=== PATIENT | female | born 1995 | race Caucasian/White ===

== ENCOUNTER 2017-03-22 09:28 | Emergency (ER) | payer OTHER ==
[2017-03-22 09:37] VITALS: BP 114/65
--- NOTE | 2017-03-22 09:59 | UC ---
Respiratory Complaint HPI - HPI Summary HPI Summary: 21 y/o female presents to the urgent care c/o dry cough for the past 3 weeks. Pt states symptoms started with a common cold and now she has sore throat, mild nasal congestion. Pt denies Fever, SOB, chest pain, abdominal pain, N/V/D. She has taking cough drops to alleviate symptoms. She is going to [employer] next week. Pt is up to date with all vaccines. - History of Current Complaint Chief Complaint: UCRespiratory Stated Complaint: COUGH Time Seen by Provider: 03/22/17 09:47 Hx Obtained From: Patient Hx Last Menstrual Period: iud ?: No Onset/Duration: Gradual Onset, Lasting Weeks - 3 weeks, Still Present Timing: Intermittent Episodes Severity Initially: Mild Severity Currently: Mild Pain Intensity: 2 - sore throat Pain Scale Used: 0-10 Numeric Character: Cough: Nonproductive - dry Aggravating Factors: Recumbent Position Alleviating Factors: OTC Meds Associated Signs And Symptoms: Positive: Nasal Congestion. Negative: Fever, Chills, Wheezing - Risk Factors Pulmonary Embolism Risk Factors: Negative Cardiac Risk Factors: Negative, Smoking - Allergies/Home Medications Allergies/Adverse Reactions: Allergies Allergy/AdvReac Type Severity Reaction Status Date / Time No Known Allergies Allergy Verified 03/02/15 11:22 PMH/Surg Hx/FS Hx/Imm Hx Previously Healthy: Yes Other Respiratory History: mononucleosis - Surgical History Surgical History: None - Family History Known Family History: Positive: None - Pt denies FMHX - Social History Occupation: Student Lives: With Family Alcohol Use: Occasionally Substance Use Type: None Smoking Status (MU): Never Smoked Tobacco - Immunization History Vaccination Up to Date: Yes Review of Systems Constitutional: Negative Skin: Negative Eyes: Negative ENT: Sore Throat, Nasal Discharge - clear nasal discharge Respiratory: Cough - dry Cardiovascular: Negative Gastrointestinal: Negative Genitourinary: Negative Motor: Negative Neurovascular: Negative Musculoskeletal: Negative Neurological: Negative Psychological: Negative Is Patient Immunocompromised?: No All Other Systems Reviewed And Are Negative: Yes Physical Exam Triage Information Reviewed: Yes Vital Signs: Initial Vital Signs Temp 99.5 F 03/22/17 09:33 Pulse 85 03/22/17 09:33 Resp 18 03/22/17 09:33 BP 114/65 03/22/17 09:33 Pulse Ox 100 03/22/17 09:33 - Additional Comments VITAL SIGNS: Reviewed. GENERAL: Patient is a well developed and nourished female who is sitting comfortable in the examining table. Patient is not in any acute respiratory distress. HEAD AND FACE: No signs of trauma. No ecchymosis, hematomas or skull depressions. No sinus tenderness. EYES: PERRLA, EOMI x 2, No injected conjunctiva, no nystagmus. No photophobia. EARS: Hearing grossly intact. Ear canals and tympanic membranes are within normal limits. MOUTH: Positive pharynx with mild erythema, no exudates, no palatal petechiae. No B/L tonsillar enlargement . Uvula in midline. NECK: Supple, trachea is midline, Positive anterior cervical lymphadenopathy, no JVD, no carotid bruit, no c-spine tenderness, neck with full ROM. No meningeal signs, no Kernig's or brudzinskis signs. CHEST: Symmetric, no tenderness at palpation LUNGS: Clear to auscultation bilaterally. No wheezing or crackles. CVS: Regular rate and rhythm, S1 and S2 present, no murmurs or gallops appreciated. ABDOMEN: Soft, non-tender. No signs of distention. No rebound no guarding, and no masses palpated. Bowel sounds are normal. EXTREMITIES: FROM in all major joints, no edema, no cyanosis or clubbing. NEURO: Alert and oriented x 3. No acute neurological deficits. Speech is normal and follows commands. SKIN: Dry and war UC Diagnostic Evaluation - Laboratory O2 Sat by Pulse Oximetry: 100 Respiratory Course/Dx - Course Course Of Treatment: 21 y/o female presents to the urgent care c/o dry cough for the past 3 weeks. Pt states symptoms started with a common cold and now she has sore throat, mild nasal congestion. Pt denies Fever, SOB, chest pain, abdominal pain, N/V/D. She has taking cough drops to alleviate symptoms. She is going to [employer] next week. Pt is up to date with all vaccines. Hx obtained. Pt with pharyngitis on examination. Rapid strep ordered, result: negative. Pt advised to continue taking Mucinex PO to alleviate symptoms and increase fluid intake, rest and eat well. If not improvement to f/u with PCP or return to the urgent care for further evaluation and treatment. Pt understood and agreed with plan of care - Differential Dx/Diagnosis Differential Diagnosis/HQI/PQRI: Asthma, Bronchitis, Laryngitis, Lower Resp Infection, Sinusitis, Other - URI, pharyngitis, mononucleosis Provider Diagnoses: 1- Upper respiratory infection Discharge - Discharge Plan Condition: Stable Disposition: HOME Patient Education Materials: Upper Respiratory Infection (ED) Referrals: [facility] [place] PHYSICIAN REFERRAL [Outside] - If Needed Additional Instructions: 1-Please take Mucinex PO q6-8hrs prn OTC to alleviate cough. Increase fluid intake, eat well, rest and avoid strenuous exercise 2-If symptoms do not improve or worsen please return to the urgent care or f/u with your PCP for further evaluation and treatment.
== END 2017-03-22 10:00 | disposition home or self-care (01) ==
LOC: UCEAST 09:28
DX: J06.9 Acute upper respiratory infection, unspecified (principal)
CPT/HCPCS: 87651; 99211; G0463

== ENCOUNTER 2017-09-04 09:30 | Emergency (ER) | payer OTHER ==
[2017-09-04 09:44] VITALS: BP 128/84
--- NOTE | 2017-09-04 11:37 | UC ---
Respiratory Complaint HPI - HPI Summary HPI Summary: Patient is a 22-year-old female presenting to the with mother. Patient states she has been having a persistent cough over the course of 2 weeks. Denies any known fevers, sweats, chills. Mother stated she was somewhat flushed yesterday. They did not take her temperature. Today on arrival she is 100.0. Has not been taking anything [id number] for relief. Denies any shortness of breath or chest pain. Denies any sputum production, rhinorrhea, sinus pressure or pain. - History of Current Complaint Chief Complaint: UCGeneralIllness Stated Complaint: COUGH Time Seen by Provider: 09/04/17 10:28 Hx Obtained From: Patient Hx Last Menstrual Period: doesnt get due to BC ?: No Onset/Duration: Gradual Onset Timing: Constant Severity Initially: Mild Severity Currently: Mild Pain Intensity: 0 Pain Scale Used: 0-10 Numeric Character: Cough: Nonproductive Associated Signs And Symptoms: Negative: Dyspnea, Dizziness, Calf Pain, URI, Nasal Congestion, Hoarseness - Risk Factors Pulmonary Embolism Risk Factors: Negative Cardiac Risk Factors: Negative Pseudomonas Risk Factors: Negative Tuberculosis Risk Factors: Negative - Allergies/Home Medications Allergies/Adverse Reactions: Allergies Allergy/AdvReac Type Severity Reaction Status Date / Time No Known Allergies Allergy Verified 09/04/17 09:44 PMH/Surg Hx/FS Hx/Imm Hx Previously Healthy: Yes - Surgical History Surgical History: None - Family History Known Family History: Positive: None - Pt denies FMHX - Social History Occupation: Unemployed Lives: With Family Alcohol Use: Occasionally Substance Use Type: None Smoking Status (MU): Never Smoked Tobacco - Immunization History Most Recent Tetanus Shot: UTD Vaccination Up to Date: Yes Review of Systems Constitutional: Negative Skin: Negative Eyes: Negative ENT: Negative Respiratory: Cough Motor: Negative Neurovascular: Negative Neurological: Negative Psychological: Negative Is Patient Immunocompromised?: No All Other Systems Reviewed And Are Negative: Yes Physical Exam Triage Information Reviewed: Yes Appearance: Well-Appearing, Well-Nourished Vital Signs: Initial Vital Signs Temp 100 F 09/04/17 09:40 Pulse 85 09/04/17 09:40 Resp 18 09/04/17 09:40 BP 128/84 09/04/17 09:40 Pulse Ox 99 09/04/17 09:40 Vital Signs Reviewed: Yes Eye Exam: Normal Eyes: Positive: Conjunctiva Clear Neck exam: Normal Neck: Positive: Supple, No Lymphadenopathy Respiratory Exam: Normal Respiratory: Positive: Chest non-tender, Lungs clear, Normal breath sounds. Negative: Stridor, Wheezing Cardiovascular Exam: Normal Cardiovascular: Positive: RRR Musculoskeletal Exam: Normal Musculoskeletal: Positive: Strength Intact Neurological Exam: Normal Neurological: Positive: Alert Psychological: Positive: Normal Response To Family Skin Exam: Normal Diagnostic Evaluation - Laboratory O2 Sat by Pulse Oximetry: 99 Respiratory Course/Dx - Course Course Of Treatment: Vital signs are stable other than temp at 100.0.. Patient is evaluated for persistent cough over the course of 2 weeks. She has not taken anything for relief. Lungs are CTA. RRR. No sinus pressure on palpation. No diffuse tenderness. Patient states she has been otherwise well. She attends college and has been around other sick contacts with respiratory infections. History of whooping cough 2.5 years ago although she has been vaccinated. She states this feels different and mother states she has not had the associated with the cough. I've advised we start with conservative measures with Tessalon Perles for cough and any Tylenol or ibuprofen over-the- counter otherwise. I do not find any signs of infection. She is strict return precautions for any fevers, sweats, chills, shortness of breath or any worsening symptoms she will return to the . - Differential Dx/Diagnosis Provider Diagnoses: Cough Discharge - Sign-Out/Discharge Documenting (check all that apply): Discharge/Admit/Transfer - Discharge Plan Condition: Stable Disposition: HOME Prescriptions: Benzonatate CAP* [Tessalon 100 MG CAP*] 100 mg PO TID #15 cap Patient Education Materials: Upper Respiratory Infection (ED) Referrals: No Primary Care Phys,NOPCP [Primary Care Provider] - Additional Instructions: Tessalon may be used up to 3 times daily for cough You may also obtain an [id number] Robitussin If he develop any fevers, sweats, chills, shortness of breath or any worsening symptoms, return to the immediately - Billing Disposition and Condition Condition: STABLE Disposition: HOME
== END 2017-09-04 10:52 | disposition home or self-care (01) ==
LOC: UCEAST 09:30
DX: R05 Cough (principal)
CPT/HCPCS: 99212; G0463